=== PATIENT | male | born 1955 | race Caucasian/White ===

== ENCOUNTER 2023-05-03 12:40 | Outpatient (OUT) | payer MEDICARE, OTHER, SELFPAY ==
--- NOTE | 2023-05-03 | XR_ITS ---
The [address] [address] Patient Name: SHERRI JEFFREY MRN: [id number] date: 1955 Sex: M Assigned Patient Location: RAD Current Patient Location: [facility] Accession/Order Number: [id number] Exam Date: 05/03/2023 13:00 Report Date: 05/04/2023 00:04 At the request of: KYLE COLEY Procedure: XR lumbar spine min 4V EXAMINATION: XR lumbar spine min 4V HISTORY: Acute midline low back pain w/o sciatica M54.50 COMPARISON: No relevant comparison available. FINDINGS: BONES: No fracture, spondylolisthesis, or change in alignment during flexion and extension. Multilevel moderate degenerative facet arthropathy. DISC SPACES: No significant disc height narrowing and posterior endplate osteophytes. PARASPINOUS: Marked atherosclerotic disease of aorta and iliac arteries. No appreciable aneurysm. OTHER: Negative. XR/XR lumbar spine min 4V IMPRESSION: 1. No appreciable acute abnormality. 2. Multilevel degenerative changes predominantly involving the facet joints. Electronically authenticated by: ERIS DEMPSEY Date: 05/04/2023 00:04
--- NOTE | 2023-05-03 | XR_ITS ---
The [address] [address] Patient Name: SHERRI JEFFREY MRN: [id number] date: 1955 Sex: M Assigned Patient Location: RAD Current Patient Location: RAD Accession/Order Number: [id number] Exam Date: 05/03/2023 12:59 Report Date: 05/03/2023 14:04 At the request of: KYLE COLEY Procedure: XR chest 2V EXAM: XR chest 2V HISTORY: Acute right-sided thoracic back pain M54.6 COMPARISON: None. TECHNIQUE: PA and lateral views of the chest. FINDINGS: The cardiomediastinal silhouette is normal. Possible right middle lobe and lingula airspace disease. Evaluation limited secondary to overlying soft tissue on the lateral view. There is no pneumothorax. No pleural effusion is noted. The osseous structures are intact. XR/XR chest 2V IMPRESSION: Possible right middle lobe and lingula airspace disease. Evaluation limited secondary to overlying soft tissue on the lateral view. Electronically authenticated by: JULIA BAILEY Date: 05/03/2023 14:04
== END 2023-05-03 12:41 | disposition home or self-care (01) ==
LOC: RAD 12:44
PROVIDERS: Family Provider Physician Assistant; PCP Internal Medicine; Visit Provider Nurse Practitioner Family
DX: M54.6 Pain in thoracic spine (principal); M54.50 Low back pain, unspecified; M47.816 Spondylosis without myelopathy or radiculopathy, lumbar region
CPT/HCPCS: 71046; 72110